=== PATIENT | male | born 1945 | race Caucasian/White ===

== ENCOUNTER → 2016-10-31 | Outpatient (CLI) | payer OTHER ==
[~2016-10-31] MED LIST: REGADENOSON 0.4 MG/5 ML SYRINGE ONE
== END | disposition home or self-care (01) ==
LOC: CFH 06:55
PROVIDERS: ATTEND Internal Medicine Cardiovascular Disease
DX: I25.9 Chronic ischemic heart disease, unspecified (principal); I51.7 Cardiomegaly; I10 Essential (primary) hypertension
CPT/HCPCS: 78452; 93017; 93306; A9502; J2785

== ENCOUNTER 2016-12-24 07:58 | Day surgery (SDC) | payer OTHER ==
[~2016-12-24] VITALS: Ht 175.3 cm; Wt 83.9 kg
[~2016-12-24 07:58] MED LIST changes: +AMLO10TA2 PO; +ENAL20TA PO; +FERR324T8 PO; +PRAV10TA2 PO; -REGADENOSON 0.4 MG/5 ML SYRINGE ONE
[2016-12-24 08:38] VITALS: BP 155/77
[2016-12-24] MEDS ORDERED: AMLO5TAB2 PO (08:38)
[2016-12-24] MEDS ORDERED: TRAZ50TA18 PO (08:38)
[2016-12-24] MEDS ORDERED: ESSIAC TEA PO (08:38)
[2016-12-24] MEDS ORDERED: LACTATED RINGERS 1,000 ML IV SCH (08:41)
[2016-12-24 09:01] LABS: HEMATOCRIT 38.1 % (39.2-51.8); HEMOGLOBIN 12.4 g/dL (13.7-18.0)
[2016-12-24 09:08] LABS: DIFF TOTAL CELLS COUNTED 100 CELL DIFF
[2016-12-24] MEDS ORDERED: LIDOCAINE/PF 1%, 30ML ONE (09:10)
[2016-12-24] MEDS ORDERED: BUPIVACAINE/PF 0.5% ONE (09:10)
[2016-12-24] MEDS ORDERED: HEPARIN 1,000 UNITS/ML, 10ML ONE (09:10)
[2016-12-24] MEDS ORDERED: BUPIVACAINE/PF-EPI 0.25% 1:200K ONE (09:10)
[2016-12-24 09:14] LABS: ASPARTATE AMINO TRANSFERASE 9 U/L (15-37); BLOOD UREA NITROGEN 20 mg/dL (7-18)
[2016-12-24 09:19] LABS: ANISOCYTOSIS 1+; VERIFY COUNTS? YES
[2016-12-24 09:20] LABS: MICROCYTOSIS 1+
[2016-12-24] MEDS ORDERED: OXYcodone 5 MG/5 ML ORAL.SOL UDC PO PRN (09:30)
[2016-12-24] MEDS ORDERED: FENTANYL PF 100 MCG/2ML IV PRN (09:30)
[2016-12-24] MEDS ORDERED: ALBUTEROL SULFATE 2.5 MG/3 ML NPPB PRN (09:30)
[2016-12-24] MEDS ORDERED: LABETALOL 5MG/ML, 20ML IV PRN (09:30)
[2016-12-24] MEDS ORDERED: MEPERIDINE/PF 25MG/0.5ML IVPush PRN (09:30)
[2016-12-24] MEDS ORDERED: hydrALAzine 20 MG/ML, 1ML IV PRN (09:30)
[2016-12-24] MEDS ORDERED: MIDAZOLAM 1 MG/ML, 2ML IV PRN (09:30)
[2016-12-24] MEDS ORDERED: PROMETHAZINE 25 MG/ML, 1ML IV PRN (09:30)
[2016-12-24] MEDS ORDERED: HYDROmorphone 1 MG/ML, 1ML IV PRN (09:30)
[2016-12-24] MEDS ORDERED: ONDANSETRON 2MG/ML, 2ML IVPush PRN (09:30)
[2016-12-24] MEDS ORDERED: ACETAMINOPHEN 325 MG TABLET PO PRN (09:30)
[2016-12-24] MEDS ORDERED: ROCURONIUM 10 MG/ML ONE (09:58)
[2016-12-24] MEDS ORDERED: SUCCINYLCHOLINE 20 MG/ML, 10ML ONE (09:58)
[2016-12-24] MEDS ORDERED: FENTANYL PF 100 MCG/2ML ONE (09:58)
[2016-12-24] MEDS ORDERED: MIDAZOLAM 1 MG/ML, 2ML ONE (09:58)
[2016-12-24] MEDS ORDERED: EPHEDRINE 50 MG/ML, 1ML ONE (09:58)
[2016-12-24] MEDS ORDERED: PROPOFOL 10 MG/ML, 20ML ONE (09:58)
[2016-12-24] MEDS ORDERED: CEFAZOLIN 1,000 MG ONE (09:58)
[2016-12-24] MEDS ORDERED: ONDANSETRON 2MG/ML, 2ML ONE (09:58)
[2016-12-24] MEDS ORDERED: DEXAMETHASONE 4 MG/ML, 1ML ONE (09:58)
[2016-12-24] MEDS ORDERED: ACETAMINOPHEN 650 MG/20.3 ML UDC ONE (11:27)
[2016-12-24] MEDS ORDERED: OXYcodone 5 MG/5 ML ORAL.SOL UDC ONE (11:27)
== END 2016-12-24 13:30 ==
LOC: OUT 07:58
PROVIDERS: ATTEND Surgery
DX: Z45.2 Encounter for adjustment and management of vascular access device (principal); Z51.11 Encounter for antineoplastic chemotherapy; C18.9 Malignant neoplasm of colon, unspecified; C78.7 Secondary malignant neoplasm of liver and intrahepatic bile duct; E11.9 Type 2 diabetes mellitus without complications; I10 Essential (primary) hypertension
CPT/HCPCS: 36415; 36561; 71010; 80053; 85025; 85610; 93005; C1788; J0330; J0690; J1100; J1644; J2250; J2405; J2704; J3010; J3490; J7120; 77001

== ENCOUNTER → 2018-10-11 | Outpatient (CLI) | payer MEDICARE, OTHER ==
[~2018-10-11] MED LIST changes: +AMLO-150 PO; -AMLO10TA2 PO; +AMLO10TA8 PO; +ESSIAC TEA PO; +TRAZ50TA66 PO
== END | disposition home or self-care (01) ==
LOC: CFH 09:51
PROVIDERS: ATTEND Internal Medicine
DX: C18.0 Malignant neoplasm of cecum (principal); R91.8 Other nonspecific abnormal finding of lung field
CPT/HCPCS: 71250; 74176